=== PATIENT | male | born 1990 | race Caucasian/White ===

== ENCOUNTER 2018-07-04 19:34 | Emergency (ER) | payer OTHER, SELFPAY ==
[2018-07-04 19:36] VITALS: BP 139/85; PULSE 95; RESP 16; TEMP 36.7; O2SAT 98; BMI 20.9
--- NOTE | 2018-07-04 20:12 | ED.VISSUMM ---
- ER Visit Summary Date of Service: 07/04/18 Chief Complaint: Head injury History of Present Illness: The patient is a 28 M who presents for injuries after being kicked in the head by a cow. Patient was kicked in the right jaw by a cow, which resulted in his head hitting a metal fence on the opposite side. He does not have memory of the incident or of his father walking back into the house. He did not fall. He is denying any headache, vision changes, nausea or vomiting, dizziness, neck pain or any other injuries. Tetanus is not up-to-date. Patient took 2 ibuprofen after the incident. Physical Examination: Vital signs: afebrile, hemodynamically stable, no hypoxia on room air General: well nourished, well developed, in no distress Skin: warm, dry, no rash, no pallor HEENT: 2 cm scalp laceration to the left temporoparietal region, 2 cm [id number] laceration to the right lower lip without involvement of the vermilion border. 4 cm flap-shaped laceration on the mucosal surface of the right lower lip with macerated tissue,. No broken teeth or other oral injuries. No malocclusion. Right jaw swelling. Patient able to fully open and close his jaw. No tenderness or deformities of the jawline. No hemotympanum. No other maxillofacial trauma.; PERRL, EOMI, moist mucous membranes Cardiovascular: regular rate and rhythm without murmurs, no peripheral edema, 2+ pulses all distal extremities Respiratory: No increased work of breathing MSK: Moves all extremities, no deformities, normal strength Neuro: Awake and alert, oriented ?4. No facial droop, sensation and motor function intact and symmetric Test Results: [] Emergency Department Course and Treatment: Patient declined pain medication. Tetanus updated. He has no malocclusion, no deformities or tenderness to palpation of the mandible, thus no imaging was performed for jaw fracture or dislocation. No direct cranial trauma other than hitting his head on the metal fence, with no loss of consciousness and currently no symptoms other than the brief amnesia and scalp lac. Thus there is low suspicion for any intracranial hemorrhage and head CT not performed. Patient's lacerations were locally anesthetized with 1% lidocaine, including the scalp and the external lip laceration. A submental nerve block was also performed on the right lower mandible with 2 cc 1% lido to achieve good anesthesia on the entire right chin and lower mouth region. After copious irrigation with sterile saline, the left scalp laceration explored, showed no foreign bodies or devitalized tissue, and was repaired using 3 x Ethilon 5-0 simple interrupted sutures with good approximation. Suture ends were left very long because they looked exactly like patient's dark hair. Patient's right lower lip laceration was copiously irrigated, cleansed with chlorhexidine, and explored with no foreign bodies noted. It was through and through from the external to the mucosal surface. 1 deep 5-0 vicryl rapidly absorbable suture was placed in the laceration. The external part of the laceration was repaired with 4 x 5-0 Vicryl sutures. No involvement of the vermilion border. The mucosal surface was an open flap, with the flap protruding inward towards the teeth and at great risk of continued trauma from accidental biting. The flap was reapproximated using three absorbable 5-0 Vicryl sutures along the superior border of the right upper lip. Good approximation was obtained. Patient was placed on Augmentin due to the complicated nature of the lip laceration with exposure to oral pathogens. Wound care instructions given. Patient discharged home with suture care instructions and instructions for when to have the various sutures removed. Treatment Plan: [] Disposition: [] Impression: Closed head injury, contusion to the right jaw, lacerations to the left scalp (2 cm), and the right lower lip involving the epithelial (2 cm) and mucosal (4cm) surfaces This note was generated with [employer] dictation software. It may contain incorrect words, spelling, and punctuation that were not noted in review of the chart prior to signing ED Disposition - Plan for ED Patient: Disposition: Home or Assisted Living Chief Complaint: Head Injury Instructions: ED Laceration Chin Sutr Tape, ED Laceration Mouth, ED Laceration Scalp Stitch Or Stap Prescriptions: Amox/Clavulanate Tablet [Augmentin Tablet] 875 mg PO Q12H #10 tab Referrals: [facility] Doctor,Out of [NON-STAFF] - Additional Instructions: Have your sutures removed as follows: 1. Scalp: three sutures - remove in 7 to 10 days 2. inner mouth: three sutures - remove in 3 to 5 days 3. outer lip/chin: four sutures - remove in 5 days You have one suture deep in your lip that will absorb on its own. Take the antibiotic to help prevent infection due to the deep wound in your mouth. You may rinse gently with warm water or with salt water. Do not eat until your lip is no longer numb. Be very careful that we do not continue to bite your lip. If you have any concerns, return immediately to the emergency department for another evaluation.
[2018-07-04] MEDS: Diphth,Pertuss(Acell),Tet Vac 0.5 ML Vial IM (20:33)
--- NOTE | 2018-07-04 21:55 | ED.DEP ---
ED Disposition - Plan for ED Patient: Disposition: Home or Assisted Living Chief Complaint: Head Injury Instructions: ED Laceration Chin Sutr Tape, ED Laceration Mouth, ED Laceration Scalp Stitch Or Stap Prescriptions: Amox/Clavulanate Tablet [Augmentin Tablet] 875 mg PO Q12H #10 tab Referrals: [facility] Doctor,Out of [NON-STAFF] - Additional Instructions: Have your sutures removed as follows: 1. Scalp: three sutures - remove in 7 to 10 days 2. inner mouth: three sutures - remove in 3 to 5 days 3. outer lip/chin: four sutures - remove in 5 days You have one suture deep in your lip that will absorb on its own. Take the antibiotic to help prevent infection due to the deep wound in your mouth. You may rinse gently with warm water or with salt water. Do not eat until your lip is no longer numb. Be very careful that we do not continue to bite your lip. If you have any concerns, return immediately to the emergency department for another evaluation.
--- NOTE | 2018-07-04 21:58 | DCINST.ED_ITS ---
ED Disposition - Plan for ED Patient: Disposition: Home or Assisted Living Chief Complaint: Head Injury Instructions: ED Laceration Chin Sutr Tape, ED Laceration Mouth, ED Laceration Scalp Stitch Or Stap Prescriptions: Amox/Clavulanate Tablet [Augmentin Tablet] 875 mg PO Q12H #10 tab Referrals: [facility] Doctor,Out of [NON-STAFF] - Additional Instructions: Have your sutures removed as follows: 1. Scalp: three sutures - remove in 7 to 10 days 2. inner mouth: three sutures - remove in 3 to 5 days 3. outer lip/chin: four sutures - remove in 5 days You have one suture deep in your lip that will absorb on its own. Take the antibiotic to help prevent infection due to the deep wound in your mouth. You may rinse gently with warm water or with salt water. Do not eat until your lip is no longer numb. Be very careful that we do not continue to bite your lip. If you have any concerns, return immediately to the emergency department for another evaluation.
[2018-07-04] MEDS: Amox/Clavulanate 875 MG Tablet PO (22:11)
[2018-07-04 22:17] VITALS: BP 108/65
== END 2018-07-04 22:22 | disposition home or self-care (01) ==
PROVIDERS: Emergency Provider Emergency Medicine; Family Provider Pediatrics; PCP Pediatrics
DX: S01.01XA Laceration without foreign body of scalp, initial encounter (principal); S01.511A Laceration without foreign body of lip, initial encounter; S00.83XA Contusion of other part of head, initial encounter; W55.22XA Struck by cow, initial encounter; Y93.9 Activity, unspecified; Y92.9 Unspecified place or not applicable; Y99.9 Unspecified external cause status; Z23 Encounter for immunization
CPT/HCPCS: 12001; 12053; 90471; 90715; 99284